=== PATIENT | male | born 1990 | race African-American/Black ===

== ENCOUNTER 2017-04-16 17:52 | Emergency (ER) | payer MEDICAID ==
[~2017-04-16] VITALS: Ht 190.5 cm; Wt 173.3 kg
[2017-04-16 17:55] VITALS: BP 149/81
[2017-04-18] MEDS ORDERED: NAPR-681 PO (18:47)
== END 2017-04-17 | disposition left against medical advice (07) ==
LOC: ER 22:31
DX: R51 Headache (principal); Z53.21 Procedure and treatment not carried out due to patient leaving prior to being seen by health care provider

== ENCOUNTER 2017-04-18 18:41 | Emergency (ER) | payer MEDICAID ==
[~2017-04-18] VITALS: Ht 182.9 cm; Wt 109.0 kg
[2017-04-18] MEDS ORDERED: NAPR-681 PO (18:47)
[2017-04-18] MEDS ORDERED: FAMOTIDINE 20MG/2ML VIAL IV STA (19:31)
[2017-04-18] MEDS ORDERED: SODIUM CHLORIDE 0.9% 1,000 ML IV ONE (19:31)
[2017-04-18] MEDS ORDERED: MAGNESIUM/ALUMINUM HYDROXIDE/SIMETHICONE 30ML UDC PO STA (19:31)
[2017-04-18] MEDS ORDERED: ONDANSETRON HCL 4MG/2ML VIAL IV STA (19:31)
[2017-04-18 20:01] LABS: BASOPHILS % 0.7 % (0.0-2.0); CHLORIDE 105 mEq/L (98-107); EOSINOPHILS % 2.2 % (0.0-5.0); HEMATOCRIT. 43.5 % (42.0-52.0); HEMOGLOBIN. 14.3 g/dL (14.0-18.0); LYMPHOCYTES % 35.2 % (20.0-50.0); MEAN CORPUSCULAR HEMOGLOBIN 27.7 pg (28.0-32.0); MEAN CORPUSCULAR VOLUME 84.5 fL (80.0-94.0); MONOCYTES % 10.5 % (2.0-8.0); NEUTROPHILS % 51.4 % (40.0-76.0); PLATELET 276 x1000/uL (130-400); RED BLOOD CELL COUNT 5.15 mill/uL (4.7-6.1); RED CELL DISTRIBUTION WIDTH 13.6 % (11.6-14.6)
[2017-04-18 20:09] LABS: CARBON DIOXIDE 26 mEq/L (21-32)
[2017-04-18 23:15] LABS: CLARITY URINE CLEAR (CLEAR); COLOR URINE YELLOW (YELLOW); GLUCOSE URINE NEGATIVE (NEGATIVE); KETONES URINE NEGATIVE (NEGATIVE); LEUKOCYTE ESTERASE URINE 1+ (NEGATIVE); NITRITE URINE NEGATIVE (NEGATIVE); OCCULT BLOOD URINE NEGATIVE (NEGATIVE); PH URINE 8.5 (4.5-8.0); PROTEIN URINE NEGATIVE (NEGATIVE); SPECIFIC GRAVITY URINE 1.021 (1.005-1.030); UROBILINOGEN URINE 0.2 E.U./dL (0.2-1.0)
[2017-04-18 23:27] LABS: *AMPHETAMINES SCREEN URINE NEGATIVE (NEGATIVE); *BARBITURATES SCREEN URINE NEGATIVE (NEGATIVE); *BENZODIAZEPINES SCREEN URINE NEGATIVE (NEGATIVE); *COCAINE SCREEN URINE NEGATIVE (NEGATIVE); CANNABINOID URINE SCREEN NEGATIVE (NEGATIVE); METHADONE URINE SCREEN NEGATIVE (NEGATIVE); OPIATES URINE SCREEN NEGATIVE (NEGATIVE); PHENCYCLIDINE URINE SCREEN NEGATIVE (NEGATIVE)
[2017-04-19 00:10] VITALS: BP 118/62
== END 2017-04-19 00:20 | disposition home or self-care (01) ==
LOC: ER 19:04
DX: R07.81 Pleurodynia (principal); M25.552 Pain in left hip; R11.2 Nausea with vomiting, unspecified; R10.9 Unspecified abdominal pain; F41.9 Anxiety disorder, unspecified
CPT/HCPCS: 36415; 80053; 80305; 81001; 83690; 85025; 93005; 96361; 96374; 96375; 99285; J2405; J3490; J7030; Z7610